=== PATIENT | male | born 1955 | race Caucasian/White ===

== ENCOUNTER 2020-08-16 16:17 | Emergency (ER) | payer MEDICARE ==
[~2020-08-16] VITALS: Ht 180.3 cm; Wt 113.6 kg
[2020-08-16] MEDS ORDERED: IV NORMAL SALINE 1000ML BAG 1,000 ML IV SCH (16:30)
--- NOTE | 2020-08-16 16:38 | ED.ADGEN ---
General Adult EDM: Chief Complaint: MECHANICAL FALL HPI: HPI: Patient is a 64-year-old male who arrives via EMS after sustaining injuries related to fall. Patient was outside at his storage facility when he reported feeling dizzy and fell backwards in a ditch/jonathan. The patient reports that he feels dizzy quite often as he has scarring of his inner ears related to previous infections. Patient reports a bystander observed this and contacted paramedics. Paramedics report the patient does appear to be intoxicated and the patient does smell of alcohol and is slurring his words. He denies any prodromal symptoms otherwise. He further denies any pain outside of abrasion sustained of his left forearm. Specifically he denies any shortness of air or chest pain. He is awake, alert and in no acute distress. Review of Systems: Review of Systems: Constitutional: Denies fever or chills. [] Eyes: Denies change in visual acuity. [] HENT: Denies nasal congestion or sore throat. [] Respiratory: Denies cough or shortness of breath. [] Cardiovascular: Denies chest pain or edema. [] GI: Denies abdominal pain, nausea, vomiting, bloody stools or diarrhea. [] : Denies dysuria. [] Musculoskeletal: Denies back pain or joint pain. [] Integument: Reports to abrasions of left forearm. Denies rash. [] Neurologic: Reports to dizziness. Denies headache, focal weakness or sensory changes. [] Endocrine: Denies polyuria or polydipsia. [] Lymphatic: Denies swollen glands. [] Psychiatric: Denies depression or anxiety. [] Current Medications: Current Medications Medications (Trade) Dose Ordered Sig/Michael Start Time Stop Time Status Last Admin Dose Admin Sodium Chloride 1,000 ml @ 100 mls/hr Q10H 08/16/20 16:30 08/17/20 00:24 DC 08/16/20 17:00 100 MLS/HR Allergies: Allergies: Allergies Coded Allergies Type Severity Reaction Last Updated Verified No Known Drug Allergies 08/16/20 No Physical Exam: PE: Constitutional: Patient is morbidly obese and appears to be intoxicated. He is well nourished, in no acute distress, non-toxic appearance. [] HENT: Patient has a small abrasion of his face with dried blood above his forehead. There is no active bleeding present. Normocephalic, atraumatic, bilateral external ears normal, oropharynx moist, no oral exudates, nose normal. [] Eyes: PERRLA, EOMI, conjunctiva normal, no discharge. [] Neck: Normal range of motion, no tenderness, supple, no stridor. [] Cardiovascular: Tachycardia. No rub or murmur [] Lungs & Thorax: Bilateral breath sounds clear to auscultation [] Abdomen: Bowel sounds normal, soft, no tenderness, no masses, no pulsatile masses. [] Skin: Abrasions left forearm. Warm, dry, no erythema, no rash. [] Back: No tenderness, no CVA tenderness. [] Extremities: Tenderness to palpation of the left forearm. No tenderness, no cyanosis, no clubbing, ROM intact, no edema. [] Neurologic: Slurring of speech. Alert and oriented X 3, normal motor function, normal sensory function, no focal deficits noted. [] Psychologic: Affect normal, judgement normal, mood normal. [] Current Patient Data: Labs: Laboratory Tests Test 08/16/20 17:00 08/16/20 17:50 08/16/20 19:30 White Blood Count 9.2 x10^3/uL (4.0-11.0) Red Blood Count 4.86 x10^6/uL (4.30-5.70) Hemoglobin 15.9 g/dL (13.0-17.5) Hematocrit 44.3 % (39.0-53.0) Mean Corpuscular Volume 91 fL (79-100) Mean Corpuscular Hemoglobin 33 pg (25-35) Mean Corpuscular Hemoglobin Concent 36 g/dL (31-37) Red Cell Distribution Width 12.8 % (11.5-14.5) Platelet Count 169 x10^3/uL (140-400) Neutrophils (%) (Auto) 75 % (31-73) H Lymphocytes (%) (Auto) 16 % (24-48) L Monocytes (%) (Auto) 7 % (0-9) Eosinophils (%) (Auto) 1 % (0-3) Basophils (%) (Auto) 0 % (0-3) Neutrophils # (Auto) 7.0 x10^3/uL (1.8-7.7) Lymphocytes # (Auto) 1.5 x10^3/uL (1.0-4.8) Monocytes # (Auto) 0.7 x10^3/uL (0.0-1.1) Eosinophils # (Auto) 0.1 x10^3/uL (0.0-0.7) Basophils # (Auto) 0.0 x10^3/uL (0.0-0.2) Sodium Level 134 mmol/L (136-145) L Potassium Level 3.9 mmol/L (3.5-5.1) Chloride Level 96 mmol/L (98-107) L Carbon Dioxide Level 20 mmol/L (21-32) L Anion Gap 18 (6-14) H Blood Urea Nitrogen 6 mg/dL (8-26) L Creatinine 1.2 mg/dL (0.7-1.3) Estimated GFR (Cockcroft-Gault) 60.8 BUN/Creatinine Ratio 5 (6-20) L Glucose Level 273 mg/dL (70-99) H Calcium Level 8.3 mg/dL (8.5-10.1) L Total Bilirubin 0.5 mg/dL (0.2-1.0) Aspartate Amino Transferase (AST) 45 U/L (15-37) H Alanine Aminotransferase (ALT) 70 U/L (16-63) H Alkaline Phosphatase 54 U/L (46-116) Total Protein 7.2 g/dL (6.4-8.2) Albumin 4.0 g/dL (3.4-5.0) Albumin/Globulin Ratio 1.3 (1.0-1.7) Ethyl Alcohol Level 224 mg/dL (0-10) H 155 mg/dL (0-10) H Urine Collection Type Unknown Urine Color Yellow Urine Clarity Clear Urine pH 5.5 (<5.0-8.0) Urine Specific [place] <=1.005 (1.000-1.030) Urine Protein Negative mg/dL (NEG-TRACE) Urine Glucose (UA) 500 mg/dL (NEG) Urine Ketones (Stick) Negative mg/dL (NEG) Urine Blood Negative (NEG) Urine Nitrite Negative (NEG) Urine Bilirubin Negative (NEG) Urine Urobilinogen Dipstick 0.2 mg/dL (0.2 mg/dL) Urine Leukocyte Esterase Negative (NEG) Urine RBC 0 /HPF (0-2) Urine WBC 0 /HPF (0-4) Urine Squamous Epithelial Cells Few /LPF Urine Bacteria 0 /HPF (0-FEW) Urine Opiates Screen Neg (NEG) Urine Methadone Screen Neg (NEG) Urine Barbiturates Neg (NEG) Urine Phencyclidine Screen Neg (NEG) Urine Amphetamine/Methamphetamine Neg (NEG) Urine Benzodiazepines Screen Neg (NEG) Urine Cocaine Screen Neg (NEG) Urine Cannabinoids Screen Neg (NEG) Urine Ethyl Alcohol Pos (NEG) Laboratory Tests 08/16/20 17:00 Laboratory Tests 08/16/20 17:00 Vital Signs: Vital Signs Date Time Temp Pulse Resp B/P (MAP) Pulse Ox O2 Delivery O2 Flow Rate FiO2 08/16/20 21:15 116 16 147/90 (109) 96 Room Air 08/16/20 16:28 98.3 98.3 EKG: EKG: [] EKG was obtained at 1651 hrs. revealed a sinus tachycardia the ventricular of 113 bpm. There do appear to be Q waves present in the anterior septal leads consistent with an old infarct. There are no acute ST/T wave changes to denote ischemia otherwise present. Heart Score: C/O Chest Pain: No Risk Factors: Risk Factors: DM, Current or recent (<one month) smoker, HTN, HLP, family history of CAD, obesity. Risk Scores: Score 0 - 3: 2.5% MACE over next 6 weeks - Discharge Home Score 4 - 6: 20.3% MACE over next 6 weeks - Admit for Clinical Observation Score 7 - 10: 72.7% MACE over next 6 weeks - Early Invasive Strategies Radiology/Procedures: Radiology/Procedures: [] Course & Med Decision Making: Course & Med Decision Making Pertinent Labs and Imaging studies reviewed. (See chart for details) [At this time the patient has become argumentative and has declined all CT imaging. I have offered to allow the patient to leave AGAINST MEDICAL ADVICE provided a relative will come to the emergency department to escort him home. At this time I have no such relative that is available to come and get him. I spoke with Dr. Jones with respect to the case and she is aware of the circumstances surrounding this. It is my hope that family will arrive at some point to take the patient home and or the patient will allow us to provide him with imaging. I have explained to him in great detail that an injury to his head can certainly cause bleeding and be a life-threatening injury. Despite this the patient continues to be obstinate in his believes and has not allowed us to perform such imaging. His care will be transitioned to Dr. Jones for further evaluation. Assumed care of patient at check out from Dr. Carty. At check out, reevaluation was pending and patient is stable. At this time, I had a long discussion with the patient about getting a CT scan. Patient states that he does not believe there is anything wrong with his head because his head does not hurt. He is refusing to get the CT at this time but does seem to understand the risks that I have discussed with him including but not limited to intracranial hemorrhage leading to disability or . Patient was watched until fully sober in the emergency room. Once he was sober CT was offered again and patient continues to decline. Patient has requested to leave AGAINST MEDICAL ADVICE. I have discussed the benefits of staying for a full work up and the patient would like to leave. I discussed the risks of leaving including but not limited to , permenant end-organ damage, worsening of condition and patient stated understanding. Patient signed out against medical advice. Lisa Disclaimer: Lisa Disclaimer: This electronic medical record was generated, in whole or in part, using a voice recognition dictation system. Departure Departure Impression: Primary Impression: Alcohol intoxication Additional Impressions: Closed head injury Contusion of left forearm Multiple abrasions Disposition: 07 LEFT AGAINST MEDICAL ADVICE Condition: STABLE Problem Qualifiers PHYLICIA CARTY DO August 16, 2020 16:38 DEMETRIS JONES MD August 17, 2020 02:15
--- NOTE | 2020-08-16 17:00 | RAD ---
EXAM: XR CHEST 1V 08/16/2020 4:18 PM CLINICAL INDICATION: Trauma COMPARISON: None TECHNIQUE: AP upright view of the chest FINDINGS: The heart and mediastinum are normal. Lungs are well-expanded and clear. No consolidatio n, pleural effusion, or pneumothorax. Pulmonary vascularity is normal. Moderate acromioclavicular de generative joint disease. IMPRESSION: No acute cardiopulmonary abnormality. Electronically signed by: Lois Mondragon MD (08/16/2020 4:57 PM) [id number]
[2020-08-16 17:14] LABS: BASO % 0 % (0-3); EOS # 0.1 x10^3/uL (0.0-0.7); EOS % 1 % (0-3); HEMATOCRIT 44.3 % (39.0-53.0); HEMOGLOBIN 15.9 g/dL (13.0-17.5); LYMPH # 1.5 x10^3/uL (1.0-4.8); LYMPH % 16 % (24-48); MEAN CORPUSCULAR HEMOGLOBIN 33 pg (25-35); MEAN CORPUSCULAR HGB CONC 36 g/dL (31-37); MEAN CORPUSCULAR VOLUME 91 fL (79-100); MONO # 0.7 x10^3/uL (0.0-1.1); MONO % 7 % (0-9); NEUT % 75 % (31-73); PLATELET COUNT 169 x10^3/uL (140-400); RED BLOOD COUNT 4.86 x10^6/uL (4.30-5.70); RED CELL DISTRIBUTION WIDTH 12.8 % (11.5-14.5); WHITE BLOOD COUNT 9.2 x10^3/uL (4.0-11.0)
[2020-08-16 17:23] LABS: CALCIUM 8.3 mg/dL (8.5-10.1); CREATININE 1.2 mg/dL (0.7-1.3); GFR 60.8; POTASSIUM 3.9 mmol/L (3.5-5.1)
[2020-08-16 17:31] LABS: ALBUMIN/GLOBULIN RATIO 1.3 (1.0-1.7); TOTAL BILIRUBIN 0.5 mg/dL (0.2-1.0); TOTAL PROTEIN 7.2 g/dL (6.4-8.2)
[2020-08-16 18:23] LABS: BILIRUBIN,URINE NEGATIVE (NEG); CLARITY,URINE CLEAR; COLOR,URINE YELLOW; NITRITE,URINE NEGATIVE (NEG); PH,URINE 5.5 (<5.0-8.0); PROTEIN,URINE NEGATIVE (NEG-TRACE); UROBILINOGEN,URINE 0.2 mg/dL (0.2 mg/dL)
[2020-08-16 18:29] LABS: BARBITURATES NEG (NEG); BENZODIAZEPINES NEG (NEG); CANNABINOIDS NEG (NEG); COCAINE NEG (NEG); METHADONE NEG (NEG); OPIATES NEG (NEG); PHENCYCLIDINE NEG (NEG)
--- NOTE | 2020-08-16 18:31 | EKG ---
[facility] [address] [place] [address] Test Date: 2020-08-16 Test Time: 16:51:46 Pat Name: KATHY COTTRELL Department: Room: Gender: M Ammonia Technician: : [id number] Requested By: PHYLICIA CARTY Order Number: [id number] Reading MD: Measurements Intervals [place] Rate: 113 P: -3 WV: 140 QRS: 23 QRSD: 62 T: 38 QT: 308 QTc: 422 Interpretive Statements SINUS TACHYCARDIA LOW LIMB LEAD VOLTAGE QRS(T) CONTOUR ABNORMALITY CONSISTENT WITH ANTEROSEPTAL INFARCT PROBABLY OLD ABNORMAL ECG RI6.02 No previous ECG available for comparison
[2020-08-16 18:32] LABS: AMPHETAMINE/METHAMPHETAMINE NEG (NEG)
[2020-08-16 18:43] LABS: BACTERIA,URINE 0 /HPF (0-FEW); RBC,URINE 0 /HPF (0-2); WBC,URINE 0 /HPF (0-4)
[2020-08-16 21:15] VITALS: BP 147/90
== END 2020-08-16 23:58 | disposition left against medical advice (07) ==
LOC: ER 16:17
DX: S50.12XA Contusion of left forearm, initial encounter (principal); S00.81XA Abrasion of other part of head, initial encounter; R42 Dizziness and giddiness; R47.81 Slurred speech; W18.39XA Other fall on same level, initial encounter; Y93.89 Activity, other specified; Y92.9 Unspecified place or not applicable; Y99.8 Other external cause status
CPT/HCPCS: 36415; 71045; 80053; 80307; 81001; 85025; 93005; 96360; 96361; 99285; G0480; J7030